=== PATIENT | female | born 1950 | race Caucasian/White ===

== ENCOUNTER 2021-07-08 04:52 | Inpatient (IN) | payer MEDICARE ==
[~2021-07-08] VITALS: Ht 157.5 cm; Wt 69.0 kg
[~2021-07-08 04:52] MED LIST: ADVAIR HF1 IN; ALENDRONATE70 MG PO; AUGMENTIN875TAB PO; AVALIDE1 TA1 OR; AVELOX400 MG OR; CIPRO500 MG OR; CIPROFLOXACN500 MG PO; COLACE100 MG PO; COMBIVENT IN; DOXYCYC MONO100 M1 OR; LISINOP/HCTZ1 TAB PO; MEDDOSEPAK OR; MUCINEX600 MG PO; NEXIUM10 MG OR; PROAIR HFA IN; SINGULAIR10 MG OR; THEOPHYLLINE300 M1 OR; THEOPHYLLINE300 MG OR; VENTOLIN HFA IN
--- NOTE | 2021-07-08 05:00 | NUR ---
TO ROOM 9 VIA W/C WITH DAUGHTER...PT TRIAGED AT BEDSIDE. PLACED IN [place] PRECAUTIONS.
--- NOTE | 2021-07-08 05:41 | NUR ---
IV ACCESS OBTAINED, IVF STARTED AND PT MEDICATED ORDERED. VISITOR AT BEDSIDE WILL CONTINUE TO MONITOR.
--- NOTE | 2021-07-08 05:45 | NUR ---
PT AND VISITOR AND AWARE OF NEED FOR URINE SPECIMEN.
[2021-07-08 06:05] LABS: IMMATURE GRANULOCYTES 0.5 % (0.0-5.0); MEAN CELL VOLUME 81.7 fL CALC (80.0-100.0); MEAN CORPUSCULAR HGB 26.4 pG CALC (26.0-32.0); MEAN CORPUSCULAR HGB CONC 32.3 g/dL CAL (32.0-36.0); NEUT# 4.72 thou/uL (2.00-7.15); RED BLOOD COUNT 5.46 mill/uL (4.20-5.60)
[2021-07-08 06:07] LABS: HEMATOCRIT 44.6 % (37.0-47.0); HEMOGLOBIN 14.4 g/dl (12.0-16.0)
[2021-07-08 06:13] LABS: ALBUMIN 4.1 g/dL (3.2-5.0); ALKALINE PHOSPHATASE 64 u/l (38-126); AMYLASE 127 u/l (30-110); ANION GAP 15 (6-22 (CALC)); CARBON DIOXIDE 24 mmol/l (22-30); CHLORIDE 105 mmol/l (95-108); LIPASE 301 u/l (23-300); POTASSIUM 3.6 mmol/l (3.5-5.1); SGOT/AST 33 u/l (9-36); SODIUM 141 mmol/l (137-146); TOTAL PROTEIN 7.5 g/dL (6.3-8.2)
[2021-07-08 06:24] LABS: MYOGLOBIN 94 ng/mL (0 - 62)
--- NOTE | 2021-07-08 06:25 | NUR ---
PT OOB TO BSC WITH MIN ASSIST, VISITOR REMAINS AT BEDSIDE
[2021-07-08 06:26] LABS: BILIRUBIN, TOTAL 0.3 mg/dL (0.0-1.4); BUN 64 mg/dL (8-23); BUN/CREATININE RATIO 18 (12-20 (CALC)); CREATININE 3.6 mg/dL (0.5-1.0); GFR 12 ML/MIN (>=60 (CALC)); GFR FOR AFR.AMER. 15 ML/MIN (>=60 (CALC))
[2021-07-08 06:52] LABS: URINE BILIRUBIN - DIPSTICK NEGATIVE (NEGATIVE); URINE COLOR YELLOW; URINE GLUCOSE - DIPSTICK NEGATIVE (NEGATIVE); URINE KETONE NEGATIVE (NEGATIVE); URINE PH 5.5 (4.5-8.0); URINE PROTEIN - DIPSTICK TRACE mg/dL (NEG-TRACE); URINE SPECIFIC GRAVITY 1.015; URINE UROBILINOGEN - DIPSTICK 0.2 E.U./dL (0.2)
[2021-07-08 07:02] LABS: URINE LEUK ESTERASE MODERATE (NEGATIVE); URINE NITRITE - DIPSTICK NEGATIVE (Negative)
[2021-07-08 07:03] LABS: URINE BLOOD DIPSTICK NEGATIVE (NEGATIVE); URINE EPITHELIAL CELLS FEW EPI/hpf (0-FEW)
[2021-07-08 07:04] LABS: URINE BACTERIA MANY hpf
--- NOTE | 2021-07-08 07:17 | NUR ---
CRITIAL RESULT COMMUNICATION WITH DR GIRALDO, POSITIVE COVID RESULT
--- NOTE | 2021-07-08 08:41 | NUR ---
Reassessment of patient completed. No distress noted.
--- NOTE | 2021-07-08 11:20 | NUR ---
REPORT CALLED TO CHRISTIANE KIRBY
--- NOTE | 2021-07-08 11:21 | NUR ---
PATIENT AWAITING AVAILABLE TELE-BOX, PRIOR TO TRANSPORT
--- NOTE | 2021-07-08 12:30 | NUR ---
PT ARRIVES TO ROOM 289 ACCOMPANIED BY DANNIE. PT IS ALERT AND ORIENTED X 3. LUNGS ARE CLEAR, NO SUPPLEMENTAL OXYGEN REQUIRED. IVF STARTED AT RATE OF [address] CALVILLO. PT IN NO DISTRESS, JUST LOOKS LIKE SHE DOES NOT FEEL WELL. VSS.
[2021-07-08 12:31] VITALS: BP 137/63
[2021-07-08 15:00] VITALS: BP 121/66
--- NOTE | 2021-07-08 16:37 | NUR ---
PT SEEN RESTING IN THE BED WITH EYES CLOSED, NO DISTRESS. PT AGREES TO HAVE KARLA HOSE PLACED.
--- NOTE | 2021-07-08 19:05 | NUR ---
REPORT RECIEVED FROM Soledad NICHOLE RN
[2021-07-08 20:59] VITALS: BP 121/60
--- NOTE | 2021-07-08 20:59 | NUR ---
ALERT AND ORIENTED X 3. VS AND ASSEMENT COMPLETED. CLEAR LUNG SOUNDS THROUGHOUT BASES, PT ON RN 96% NORMAL HEART SOUNDS, LAST TELE READING SR 75. PT DENIES NEED FOR COUGH MEDICINE AT THIS TIME. PT WOULD LIKE TYLENOL, AND COMPLAINS OF NAUSEA. ACTIVE BOWEL SOUNDS THROUGHOUT ALL QUADRANTS, LAST REPORTED BOWEL MOVEMENT 07/07. #20 LAC, FLUSHED AND PATENT. PLAN OF CARE REVIEWED, CALL LIGHT AND BEDSIDE TABLE WITHIN REACH.
[2021-07-08 23:58] VITALS: BP 104/75
[2021-07-09 03:45] VITALS: BP 125/71
--- NOTE | 2021-07-09 05:00 | NUR ---
PT UP TO THE RESTROOM, MEDICATED PER EMAR
[2021-07-09 06:07] LABS: HEMATOCRIT 38.8 % (37.0-47.0); HEMOGLOBIN 12.6 g/dl (12.0-16.0); IMMATURE GRANULOCYTES 0.4 % (0.0-5.0); MEAN CELL VOLUME 82.7 fL CALC (80.0-100.0); MEAN CORPUSCULAR HGB 26.9 pG CALC (26.0-32.0); MEAN CORPUSCULAR HGB CONC 32.5 g/dL CAL (32.0-36.0); NEUT# 3.11 thou/uL (2.00-7.15); RED BLOOD COUNT 4.69 mill/uL (4.20-5.60); RED CELL DISTRI WIDTH 13.9 % (11.5-15.5)
[2021-07-09 06:39] LABS: BILIRUBIN, TOTAL 0.3 mg/dL (0.0-1.4); C-REACTIVE PROTEIN 0.6 mg/dL (0-0.9); POTASSIUM 3.6 mmol/l (3.5-5.1)
[2021-07-09 06:40] LABS: ALBUMIN 3.2 g/dL (3.2-5.0); CREATININE 1.5 mg/dL (0.5-1.0)
[2021-07-09 08:38] VITALS: BP 134/78
[2021-07-09] MEDS ORDERED: ZOFRAN4 MG/TAB PO (09:18)
[2021-07-09] MEDS ORDERED: OMNICEF300 MG PO (09:21)
--- NOTE | 2021-07-09 10:12 | NUR ---
PT MEDICATED FOR HEADACHE AND NAUSEA. ASKED THAT BREAKFAST TRAY BE TAKEN/REMOVED FROM THE ROOM. DENIES ANY OTHER NEEDS AT THIS TIME. SHE DOES REPORT HAVING HAD LARGE SOFT STOOL JUST PRIOR TO MY ENTERING THE ROOM.
--- NOTE | 2021-07-09 11:31 | NUR ---
DISCHARGE ORDERS REVIEWED, MISSILE TRACKING TECHNICIAN REMOVED AND IV REMOVED/INTACT, SITE APPEARS HEALTHY. PT IS GETTING DRESSED, DENIED NEED OF ASSISTANCE. PT CALLED HER DAUGHTER WHILE I WAS IN THE ROOM, DAUGHTER WILL COME TO SENIOR ACCOUNT CLERK. I INSTRUCTED THE PT TO CALL WHEN HER RIDE IS HERE AND WE WILL TRANSFER HER VIA WC.
--- NOTE | 2021-07-09 11:49 | NUR ---
Pt off med surg unit via wc accompanied by telegraphic typewriter operator. Pt assisted into vehicle by her daughter. Pt was in stable condition upon leaving unit.
[2021-07-12] MEDS ORDERED: MACROBID100 M1 PO (14:05)
== END 2021-07-09 11:44 | disposition home or self-care (01) | DRG 178 ==
LOC: ED 04:52 → ED-I 08:00 → ED 08:13 → ED-I 08:14 → MS2 10:47
PROVIDERS: Emergency Medicine; Nurse Practitioner; ADMIT Hospitalist; ATTEND Hospitalist
DX: U07.1 COVID-19 (principal); N17.9 Acute kidney failure, unspecified; N39.0 Urinary tract infection, site not specified; E86.0 Dehydration; I10 Essential (primary) hypertension; J44.9 Chronic obstructive pulmonary disease, unspecified; B96.20 Unspecified Escherichia coli [E. coli] as the cause of diseases classified elsewhere
CPT/HCPCS: S0164